=== PATIENT | male | born 1970 | race Caucasian/White ===

== ENCOUNTER 2017-04-04 17:13 | Emergency (ER) | payer SELFPAY ==
[~2017-04-04] VITALS: Ht 195.6 cm; Wt 136.4 kg
[2017-04-04 17:16] VITALS: BP 177/99; PULSE 101; RESP 16; TEMP 95; O2SAT 96
[2017-04-04] MEDS ORDERED: AUGM875T3 PO (19:15)
[2017-04-04] MEDS ORDERED: TYLETAB34 PO (19:16)
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
[2017-04-04] MEDS ORDERED: AMOXICILLIN/CLAVULANATE K 875 MG TAB PO ONE (19:30)
[2017-04-04] MEDS ORDERED: TETANUS/DIPHTHERIA TOXOID ADULT 0.5 ML VIAL IM ONE (19:30)
== END 2017-04-04 19:57 | disposition home or self-care (01) ==
LOC: NEPK 17:13
DX: S01.81XA Laceration without foreign body of other part of head, initial encounter (principal); W22.8XXA Striking against or struck by other objects, initial encounter; Y93.55 Activity, bike riding; Z23 Encounter for immunization
CPT/HCPCS: 12014; 90471; 90714